=== PATIENT | female | born 1990 | race Caucasian/White ===

== ENCOUNTER 2017-11-11 09:10 | Inpatient (IN) | payer BC ==
[~2017-11-11] VITALS: Ht 152.4 cm; Wt 70.5 kg
[2017-11-11] VITALS (19 sets, daily range): BP systolic 107–143; BP diastolic 46–82; PULSE 62–87; TEMP 98.3–98.7
[~2017-11-11 09:10] MED LIST: MOTRIN 800800 MG/TAB PO; PERCOCET 325 MG1 TA2 PO
[2017-11-11] MEDS ORDERED: ZANTAC 150MG T150 MG PO (10:04)
[2017-11-11] MEDS ORDERED: PRENATAL MVI PO (10:04)
[2017-11-11] MEDS ORDERED: TUMS500 MG CHEW (10:05)
[2017-11-11 10:40] LABS: BASO % 0.4 % (0.0-2.0); EOS # 0.1 (0.0-0.7); EOS % 0.8 % (0-4.0); GRAN # 5.1 (1.4-6.5); GRAN % 66.6 % (42.2-75.2); LYMPH # 1.8 (1.2-3.4); LYMPH % 23.3 % (20.0-51.0); MEAN CELL VOLUME 85 fl (80.0-100.0); MEAN CORPUSCULAR HEMOGLOBIN 29 pg (27.0-31.0); MEAN CORPUSCULAR HGB CONC 34 g/dl (33.0-37.0); MEAN PLATELET VOLUME 9.6 fl (7.4-10.4); MONO # 0.6 (0.1-0.6); MONO % 8.4 % (1.7-9.3); PLATELET COUNT 213 K/mm3 (130-400); RED BLOOD COUNT 3.78 M/mm3 (4.10-5.30)
[2017-11-11 10:51] LABS: HEMATOCRIT 32.1 % (37.0-47.0)
[2017-11-12 07:15] VITALS: BP 109/79; PULSE 72; TEMP 98.1
[2017-11-12] MEDS ORDERED: PERCOCET 325 MG1 TA2 PO (09:25)
[2017-11-12] MEDS ORDERED: IBU800 M1 PO (09:25)
[2017-11-12 15:30] VITALS: BP 116/71; PULSE 90; TEMP 98.5
[2017-11-12 20:17] VITALS: BP 117/72; PULSE 80; TEMP 98.8
[2017-11-13 07:18] VITALS: BP 117/73; PULSE 76; TEMP 98.4
== END 2017-11-13 13:35 | disposition home or self-care (01) | DRG 766 ==
LOC: OB 09:10 → LDR 12:51 → OB 11-13 13:35
PROVIDERS: Student in an Organized Health Care Education/Training Program
PROC: 10D00Z1 Extraction of Products of Conception, Low, Open Approach (ICD-10-PCS; principal; 2017-11-11)
DX: O32.1XX0 Maternal care for breech presentation, not applicable or unspecified (principal); O99.824 Streptococcus B carrier state complicating childbirth; O43.123 Velamentous insertion of umbilical cord, third trimester; O99.52 Diseases of the respiratory system complicating childbirth; J45.909 Unspecified asthma, uncomplicated; K21.9 Gastro-esophageal reflux disease without esophagitis; Z3A.39 39 weeks gestation of pregnancy; Z37.0 Single live birth
CPT/HCPCS: J0690; J1885; J2175; J2405; J2590; J3010; J7120

== ENCOUNTER → 2020-05-30 | Outpatient (CLI) | payer BC ==
[~2020-05-30] MED LIST changes: +IBU800 M1 PO; +PRENATAL MVI PO; +TUMS500 MG CHEW; +ZANTAC 150MG T150 MG PO
== END | disposition still patient (30) ==
LOC: ZCOL.LAB 05-29 11:31
DX: Z20.828 Contact with and (suspected) exposure to other viral communicable diseases (principal)

== ENCOUNTER 2020-06-01 10:12 | Inpatient (IN) | payer BC ==
[2020-06-01] VITALS (19 sets, daily range): BP systolic 95–114; BP diastolic 50–70; PULSE 53–85; TEMP 97.6–99.4
[~2020-06-01] VITALS: Ht 152.5 cm; Wt 68.2 kg
--- NOTE | 2020-06-01 10:15 | NUR ---
Patient ambulatory to OB floor with at side, for schedule repeat . Pt placed on EFM and TOCO with reactive FHR strip with contractions every 4-6 minutes. Pt reports feeling some contractions, denies pain. Reports good movement and denies vaginal bleeding or leaking of fluid. IV initiated, consents signed. Oriented to room and plan of care, denies questions or concerns at this time. Abdomen prepped. Call light within reach.
[2020-06-01 11:18] LABS: BASO % 0.3 % (0.0-2.0); EOS % 0.4 % (0-4.0); GRAN # 7.2 (1.4-6.5); GRAN % 70.7 % (42.2-75.2); HEMOGLOBIN 11.7 g/dl (12.5-16.0); LYMPH # 2.2 (1.2-3.4); LYMPH % 21.2 % (20.0-51.0); MEAN CELL VOLUME 87 fl (80.0-100.0); MEAN CORPUSCULAR HEMOGLOBIN 30 pg (27.0-31.0); MEAN CORPUSCULAR HGB CONC 34 g/dl (33.0-37.0); MEAN PLATELET VOLUME 8.7 fl (7.4-10.4); MONO # 0.7 (0.1-0.6); MONO % 6.7 % (1.7-9.3); PLATELET COUNT 298 K/mm3 (130-400); RED BLOOD COUNT 3.95 M/mm3 (4.10-5.30); REDCELL DISTRIBUTION WIDTH-CV 12.6 % (11.5-14.5)
[2020-06-01 11:32] LABS: HEMATOCRIT 34.3 % (37.0-47.0)
--- NOTE | 2020-06-01 12:55 | NUR ---
Pt. to PACU via bed. IV infusing. Funal massage firm, lochia within normal limits, abdominal dressing C/D/I. Recieved report from Caryn Godwin CRNA. Dr. Draper to patient's bedside. Remain with patient, per protocol.
[2020-06-02] VITALS: BP 104/49; PULSE 72; TEMP 98.5
[2020-06-02 05:50] VITALS: BP 102/55; PULSE 71; TEMP 98.1
[2020-06-02 08:10] VITALS: BP 100/66; PULSE 75; TEMP 98.1
[2020-06-02] MEDS ORDERED: IBU800 M1 PO (08:28)
[2020-06-02] MEDS ORDERED: PERCOCET 325 MG1 TA2 PO (08:29)
[2020-06-02 17:10] VITALS: BP 90/50; PULSE 72; TEMP 98.2
[2020-06-02 20:30] VITALS: BP 102/65; PULSE 70; TEMP 98.4
[2020-06-03 08:30] VITALS: BP 118/69; PULSE 81; TEMP 97
[2020-06-03 12:00] VITALS: BP 127/76; PULSE 88; TEMP 98
== END 2020-06-03 13:00 | disposition home or self-care (01) | DRG 788 ==
LOC: OB 10:12
PROVIDERS: ADMIT Student in an Organized Health Care Education/Training Program
PROC: 10D00Z1 Extraction of Products of Conception, Low, Open Approach (ICD-10-PCS; principal; 2020-06-01)
DX: O32.1XX0 Maternal care for breech presentation, not applicable or unspecified (principal); Z3A.39 39 weeks gestation of pregnancy; Z37.0 Single live birth; O99.52 Diseases of the respiratory system complicating childbirth; O99.62 Diseases of the digestive system complicating childbirth; K21.9 Gastro-esophageal reflux disease without esophagitis; J45.909 Unspecified asthma, uncomplicated
CPT/HCPCS: J0690; J1885; J2405; J2590; J7120